=== PATIENT | female | born 1970 | race African-American/Black ===

== ENCOUNTER 2025-01-16 13:50 | Emergency (ER) | payer BC ==
[~2025-01-16] VITALS: Ht 157.5 cm; Wt 130.2 kg
[2025-01-16] MEDS ORDERED: MECL-159 PO (16:50)
[2025-01-16 17:01] LABS: BASOPHILS % (AUTO) 0.3 % (0.0-2.0); EOSINOPHILS # (AUTO) 0.1 K/uL (0.0-0.7); EOSINOPHILS % (AUTO) 1.4 % (0.0-7.0); HEMATOCRIT 38.5 % (31.2-41.9); HEMOGLOBIN 12.6 g/dL (10.9-14.3); LYMPHOCYTES # (AUTO) 1.3 K/uL (0.8-4.8); LYMPHOCYTES % (AUTO) 31.7 % (20.5-51.5); MEAN CORPUSCULAR HEMOGLOBIN 31.4 uug (24.7-32.8); MEAN CORPUSCULAR HGB CONC 33 g/dL (32.3-35.6); MEAN CORPUSCULAR VOLUME 95.7 fL (75.5-95.3); MONOCYTES # (AUTO) 0.3 K/uL (0.1-1.30); MONOCYTES % (AUTO) 8.1 % (0.0-11.0); NEUTROPHILS # (AUTO) 2.4 K/uL (1.8-8.9); NEUTROPHILS % (AUTO) 58.5 % (38.5-71.5); PLATELET COUNT (AUTO) 235 K/uL (179-408); RED BLOOD CELL COUNT(AUTO) 4.03 MIL/uL (3.63-4.92); WHITE BLOOD COUNT (AUTO) 4.1 K/uL (3.8-11.8)
[2025-01-16 17:03] LABS: CALCIUM 9.5 mg/dL (8.5-10.1); CREATININE 0.8 mg/dL (0.6-1.3)
[2025-01-16 17:08] LABS: ALBUMIN 3.8 g/dL (3.4-5.0); BILIRUBIN,DIRECT 0.1 mg/dL (0.0-0.2); BILIRUBIN,TOTAL 0.4 mg/dL (0.2-1.0); TOTAL PROTEIN, SERUM 8.9 g/dL (6.4-8.2)
[2025-01-16 17:32] LABS: MAGNESIUM 2.1 mg/dL (1.8-2.4)
[2025-01-16 19:07] VITALS: BP 25/68; TEMP 98.6; O2SAT 100
== END 2025-01-16 19:09 | disposition home or self-care (01) ==
LOC: ER 13:50
DX: H81.20 Vestibular neuronitis, unspecified ear (principal); E08.8 Diabetes mellitus due to underlying condition with unspecified complications; Z85.528 Personal history of other malignant neoplasm of kidney
CPT/HCPCS: 36415; 83735; 84681; 85025; A4606; A4663